=== PATIENT | male | born 1965 | race American Indian/Alaskan Native ===

== ENCOUNTER 2019-01-22 08:44 | Day surgery (SDC) | payer OTHER ==
[~2019-01-22 08:44] MED LIST: SODIUM CHLORIDE 0.9% 1000 ML 1,000 ML IV SCH
[2019-01-22] MEDS ORDERED: PROPOFOL 200 MG/20 ML VIAL IV ONE ×2 (12:13)
[2019-01-22] MEDS ORDERED: LIDOCAINE (2%) 20 MG/1 ML VIAL 20 ML MDV INFILTRATI ONE (12:13)
[2019-01-22] MEDS ORDERED: WATER FOR IRRIG STERILE 1,000 ML BOTTLE ONE (12:21)
[2019-01-22] MEDS ORDERED: WATER FOR IRRIG STERILE 250 ML BOTTLE IR ONE (12:21)
--- NOTE | 2019-01-22 12:24 | Anesthesia Day of Surgery ---
Anesthesia Day of Surgery - Day of Surgery Patient Examined: Yes Patient H&P Reviewed: Yes Patient is NPO: Yes
--- NOTE | 2019-01-22 12:24 | Anesthesia Consultation ---
Anesthesia Consult and Med Hx Date of service: 01/22/19 - Airway Anesthetic Teeth Evaluation: Good ROM Head & Neck: Adequate Mental/Hyoid Distance: Adequate Mallampati Class: Class II Intubation Access Assessment: Good - Pulmonary Exam CTA: Yes - Cardiac Exam Cardiac Exam: RRR - Pre-Operative Health Status ASA Pre-Surgery Classification: ASA3 Proposed Anesthetic Plan: MAC - Pulmonary Hx Smoking: No - Cardiovascular System Hx Hypertension: Yes - Endocrine Hx End Stage Renal Disease: Yes (On HD MWF)
--- NOTE | 2019-01-22 12:45 | Procedure Note ---
Date of procedure: 01/22/19 Pre-op diagnosis: Colon Polyp Screening Post-op diagnosis: other (Solitary,Small Rectal Polyp (possibly Hyperplastic)/Moderately, Scattered,Diverticular Disease) Procedure: Colonoscopy with Biopsy Anesthesia: MAC Surgeon: GAY LEI Estimated blood loss: minimal Pathology: list Specimen disposition: to lab Condition: stable Disposition: same day (Avoid aspirin and NSAID for 4 days otherwsie resume home medication. Encourage fiber intake and follow up in 1 to 2 weeks ).)
--- NOTE | 2019-01-22 13:03 | Operative Report ---
PROCEDURE: Colonoscopy with biopsy. INDICATIONS: This 53-year-old -[place] gentleman with an underlying history of hypertension, history of end-stage renal disease, who has never had a colonoscopy done as part of colon polyp screening. DESCRIPTION OF PROCEDURE: Procedure was done after getting informed consent with MAC anesthesia. Initial rectal exam was unremarkable. Instrument was passed through the rectum onto the cecum, which was identified with ileocecal valve and appendiceal orifice. Visualization was fair. The terminal ileum was intubated, briefly showed normal mucosa. The cecum was also examined on the retroverted view, which did not show any additional pathology. There were a few scattered diverticula noted in the proximal as well as in the transverse and left colon. In the rectum, there was a solitary small polyp, possibly hyperplastic about 7-8 mm in diameter that was removed by cold biopsy and the rectum appeared normal on the retroverted view. There was minimal bleeding from the polypectomy site and no complications associated with the procedure. ASSESSMENT: Colon polyp screening, solitary small rectal possibly hyperplastic polyp, moderately scattered diverticular disease, no internal hemorrhoids noted. PLAN: To encourage the patient to take fiber supplements, avoid aspirin and aspirin-related products, and follow up in the office in 1-2 weeks' time. Procedure was done in the GI lab with assistance of the GI lab team, which included RN, Tiff Gan, meteorological technician and with assistance of anesthesia. JOB# [id number] CANDIE/LYNETTE
[2019-01-22 13:21] VITALS: BP 128/88
--- NOTE | 2019-01-22 13:43 | Post Anesthesia Evaluation ---
- Post Anesthesia Evaluation Patient Participated: Yes Airway Patent: Yes Stable Respiratory Function: Yes Nausea/Vomiting: No Temp > 96.8F: Yes Pain Manageable: Yes Adequeate Hydration: Yes Anesthesia Complications: No Block Receding Appropriately: Not Applicable Patient on Ventilator: No
== END 2019-01-22 08:45 | disposition home or self-care (01) ==
LOC: GIO 08:44
DX: Z12.11 Encounter for screening for malignant neoplasm of colon (principal); K62.1 Rectal polyp; I12.0 Hypertensive chronic kidney disease with stage 5 chronic kidney disease or end stage renal disease; N18.6 End stage renal disease; K57.30 Diverticulosis of large intestine without perforation or abscess without bleeding; M19.90 Unspecified osteoarthritis, unspecified site; Z79.899 Other long term (current) drug therapy; Z87.440 Personal history of urinary (tract) infections; Z87.442 Personal history of urinary calculi; Z96.641 Presence of right artificial hip joint; Z98.890 Other specified postprocedural states
CPT/HCPCS: 45380; 88305; J2704; J7030